=== PATIENT | male | born 1990 ===

== ENCOUNTER 2018-09-03 09:23 | Inpatient (IN) | payer OTHER ==
--- NOTE | 2018-09-03 09:51 | C.PDOC ---
History Of Present Illness 27 y/o male, otherwise well, presents to the ED requesting detox form heroin. Patient admits to sniffing heroin, last use was yesterday afternoon. No IVDA. Patient is now complaining of general body aches and feeling nauseous. Denies any tremors, palpitations, headache, fevers, chills, cough, or URI symptoms. Time Seen by Provider: 09/03/18 09:43 Chief Complaint (Nursing): Substance Abuse History Per: Patient History/Exam Limitations: no limitations Onset/Duration Of Symptoms: Days Current Symptoms Are (Timing): Still Present Modifying Factor(s): Other (Heroin) Associated Symptoms: denies: Suicidal Thoughts, Suicidal Plan Involuntary Hold By: None Past Medical History Reviewed: Historical Data, Nursing Documentation, Vital Signs Other Surgeries: Left knee surgery, Right ankle surgery Family History: States: No Known Family Hx Review Of Systems Except As Marked, All Systems Reviewed And Found Negative. Constitutional: Negative for: Fever, Chills Cardiovascular: Negative for: Palpitations Respiratory: Negative for: Cough, Shortness of Breath Gastrointestinal: Positive for: Nausea. Negative for: Abdominal Pain Musculoskeletal: Positive for: Other (Generalized body aches). Negative for: Back Pain Neurological: Negative for: Weakness, Dizziness Physical Exam - Physical Exam Appears: Non-toxic, No Acute Distress Skin: Warm, Dry, No Rash Head: Atraumatic, Normacephalic Eye(s): bilateral: Normal Inspection, PERRL, EOMI Oral Mucosa: Moist Neck: Normal ROM Chest: Symmetrical Cardiovascular: Rhythm Regular, No Murmur Respiratory: Normal Breath Sounds, No Accessory Muscle Use, No Wheezing Gastrointestinal/Abdominal: Soft, No Tenderness, No Distention Extremity: Bilateral: Atraumatic, Normal Color And Temperature, Other (No tremors noted) Neurological/Psych: Oriented x3, Normal Speech ED Course And Treatment - Laboratory Results Result Diagrams: 09/03/18 10:37 09/03/18 10:37 Medical Decision Making Medical Decision Making: Impression: Detox, heroin use Plan: - Labs ordered - Pending crisis evaluation Disposition Counseled Patient/Family Regarding: Diagnosis - Disposition Disposition: HOSPITALIZED Disposition Time: 11:57 Condition: GUARDED Forms: [facility] (Georgian) - POA Present On Arrival: None - Clinical Impression Clinical Impression: Drug abuse - Scribe Statement The provider has reviewed the documentation as recorded by the Scribe Flora Timi Provider Attestation: All medical record entries made by the Meli were at my direction and personally dictated by me. I have reviewed the chart and agree that the record accurately reflects my personal performance of the history, physical exam, medical decision making, and the department course for this patient. I have also personally directed, reviewed, and agree with the discharge instructions and disposition. Decision To Admit - Pt Status Changed To: Hospital Disposition Of: Inpatient - Admit Certification Admit to Inpatient:: After my assessment, the patient will require hospitalization for at least two midnights. This is because of the severity of symptoms shown, intensity of services needed, and/or the medical risk in this patient being treated as an outpatient. - InPatient: Physician Admission Certification: I certify that this patient requires 2 or more midnights of care for the following reason:: opioid detox - . Bed Request Type: Detox Admitting Physician: Mikala Ravi Patient Diagnosis: Drug abuse
[2018-09-03 10:42] LABS: BASO % 0.3 % (0.0-2.0); EOS # 0.3 K/uL (0.0-0.7); EOS % 3.2 % (0.0-4.0); HEMOGLOBIN 15.5 g/dL (12.0-18.0); LYMPH # 0.9 K/uL (1.0-4.3); LYMPH % 9.1 % (20.0-40.0); MEAN CELL VOLUME 94.7 fL (80.0-94.0); MEAN CORPUSCULAR HEMOGLOBIN 31.9 pg (27.0-31.0); MEAN CORPUSCULAR HGB CONC 33.7 g/dL (33.0-37.0); MEAN PLATELET VOLUME 7.9 fL (7.2-11.7); MONO # 0.9 K/uL (0.0-0.8); MONO % 9.1 % (0.0-10.0); NEUT # 8.1 K/uL (1.8-7.0); NEUT % 78.3 % (50.0-75.0); PLATELET COUNT 233 K/uL (130-400); RBC 4.85 Mil/uL (4.40-5.90); RED CELL DISTRIBUTION WIDTH 13.3 % (11.5-14.5); WHITE BLOOD COUNT 10.4 K/uL (4.8-10.8)
[2018-09-03 10:46] LABS: URINE AMORPHOUS SEDIMENT RARE /ul (<OCC); URINE BILIRUBIN NEGATIVE (NEGATIVE); URINE BLOOD NEGATIVE (NEGATIVE); URINE CLARITY Turbid (Clear); URINE COLOR Amber (YELLOW); URINE GLUCOSE (UA) NORMAL (Normal); URINE LEUKOCYTE ESTERASE NEG Leu/uL (Negative); URINE PROTEIN NEGATIVE (NEGATIVE); URINE UROBILINOGEN NORMAL mg/dL (0.2-1.0)
[2018-09-03 10:56] LABS: ALBUMIN 4.5 g/dL (3.5-5.0); BLOOD UREA NITROGEN 11 mg/dL (9-20); CALCIUM 9.1 mg/dl (8.6-10.4); GFR NON-AFRICAN AMERICAN > 60
[2018-09-03 10:57] LABS: ALB/GLOB RATIO 1.6 (1.0-2.1); ALT/SGPT 35 U/L (21-72); AST/SGOT 38 U/L (17-59)
[2018-09-03 11:07] LABS: BARBITURATES, UR NEGATIVE (NEGATIVE); BENZODIAZEPINES, UR NEGATIVE (NEGATIVE); PHENCYCLIDINE, UR NEGATIVE (NEGATIVE)
[2018-09-03 11:08] LABS: EOSINOPHIL 5 % (0-4); LYMPHOCYTE 8 % (20-40); MONOCYTE 9 % (0-10); NEUTROPHIL 78 % (50-75); PLATELET ESTIMATE NORMAL (NORMAL); TOTAL CELLS COUNTED 100
[2018-09-03 11:24] LABS: OPIATES, UR POSITIVE (NEGATIVE)
[2018-09-03] MEDS ORDERED: Aluminum Hydroxide/Magnesium Hydroxide Susp (30 mL) PO PRN (16:49)
[2018-09-03] MEDS ORDERED: Buprenorphine Hydrochloride 2 mg SL ONE ×2 (16:59→18:15)
--- NOTE | 2018-09-03 17:10 | PCM.BM ---
<JacklynRisa - Last Filed: 09/03/18 17:08> Treatment Plan Problems - Problems identified on initial assessmt Defensive Coping Date Initiated: 09/03/18 Time Initiated: 17:09 Assessment reference: NA Status: Active Chronic Low Self esteem Date Initiated: 09/03/18 Time Initiated: 17:09 Assessment reference: NA Status: Active Low Motivation to Change Date Initiated: 09/03/18 Time Initiated: 17:09 Assessment reference: NA Status: Active Treatment assets and liabiliti Patient Assests: cooperative, ADL independent, negotiates basic needs, cognitively intact Patient Liabilities: substance abuse - Milieu Protocol Maintain good personal hygiene: daily Encourage regular showers, daily Remind patient to perform daily oral care, daily Assist patient to perform ADL's Conduct patient checks and document Observation sheet: Q15 minutes Maintain personal safety: every shift Educate patient to report safety concerns to staff, every shift Monitor environment for contraband/sharps Medication safety: Monitor for expected outcome, potential side effects: every shift, Assess barriers to learning: every shift, Assess readiness for medication education: every shift <Christina Barbosa - Last Filed: 09/06/18 14:27> Family Contact Family involvement: Family/SO is involved Family contact name: mom Family contacted how many times per week?: 2 - Goals for Treatment Patient goals for treatment: Complete detox and apply for long-term rehab. Discharge/Continuing Care - Education Needs Education Needs: Family Diagnosis/Disease Process, Family Community resources, Patient Medication, Patient Diagnosis/Disease Process, Patient Coping Skills, Patient Anger Management skills, Patient Placement options, Patient Community resources - Discharge Discharge Criteria: No longer exhibiting s/s of withdrawal, Reduction of target symptoms Discharge to:: Substance Abuse Rehab - Treatment Team Participation Patient/Family/SO Statement: 09/06/18 14:28 "I wanna go to [facility] long-term..." Discussed with Family/SO: No Was Patient/Family/SO present at Treatment Team Meeting: Yes <Mikala Ravi - Last Filed: 09/09/18 18:09> - Diagnosis (1) Opioid use disorder, severe, dependence Status: Acute Interventions: 09/03/18 18:09 * Assess 7x/week regarding severity of withdrawal * Educate regarding risks, benefits, side effects and alternatives of medication s * Use Motivational Interviewing for abstinence * Use CBT for relapse prevention * Medication management for withdrawal symptoms * Encourage medication assisted treatment *
[2018-09-04] MEDS: Multiple Vitamins Tab PO SCH (09:41)
[2018-09-04] MEDS: Buprenorphine Hydrochloride 2 mg SL SCH (09:42)
--- NOTE | 2018-09-04 11:24 | PCM.PSYCH ---
Initial Psychiatric Evaluation - Initial Psychiatric Evaluation Type of Admission: Voluntary Legal Status: Capacity Chief Complaint (in patient's own words): "I need detox" History of Present Illness and Precipitating Events: A 27 year old male who is single, unemployed, currently living with his mother, presents to the hospital for heroin detox. Patient reports that he needs to stop using before it gets really out of hand. Patient has no history of previous detox. Patient states he is easily influenced by his friends, who convinced him to start using heroin. His sister convinced him to come to the hospital for treatment. Patient sniffs 5 bags per day for the past few weeks, with his last use being yesterday. Patient currently complains of withdrawal symptoms including lethargy, body aches, stomach cramps, bouts of sweating, and restlessness. He also describes tremors, anxiety and some sweating from alcohol. Patient also sniffs cocaine occasionally, drinks 1 pint of alcohol daily, and pack of cigarettes per day for the last 2 months. Patient denies marijuana, benzodiazepine, and other illicit substance use. Patient has never been to rehab. Patient denies suicidal or homicidal ideations, visual or auditory hallucinations, or paranoia at this time. Patient also has a right ankle injury prompting a visit to his PMD for, but has not gotten a follow-up x-ray. Psych Hx: depression, anxiety, ADHD, but the patient has no history of inpatient psychiatric hospitalizations in the past. Fam Psych Hx: mother had depression, brother is schizophrenic PMHx: denies Meds: denies Allergies: shellfish, trazodone, aripiprazole Current Medications: Active Medications Generic Name Dose Route Start Last Admin Trade Name Freq PRN Reason Stop Dose Admin Al Hydrox/Mg Hydrox/Simethicone 30 ml 09/03/18 16:49 Maalox 30 Ml PO TID PRN Indigestion / Heartburn Buprenorphine HCl 8 mg 09/04/18 10:00 09/04/18 09:42 Subutex SL 09/09/18 09:59 8 mg DAILY RONN Administration Taper Chlordiazepoxide 25 mg 09/03/18 18:00 09/04/18 05:01 Librium PO 09/08/18 17:59 25 mg Q6H RONN Administration Taper Chlordiazepoxide 25 mg 09/03/18 16:57 Librium PO Q4H PRN Alcohol Withdrawal Clonidine HCl 0.1 mg 09/03/18 16:49 Catapres PO Q4 PRN COWS Score More or Equal to 5 Folic Acid 1 mg 09/04/18 10:00 09/04/18 09:41 Folic Acid PO 1 mg DAILY RONN Administration Hydroxyzine HCl 50 mg 09/03/18 16:52 09/03/18 21:32 Atarax PO 50 mg Q6H PRN Administration Anxiety Ibuprofen 600 mg 09/03/18 16:52 Motrin Tab PO Q6H PRN Pain, moderate (4-7) Influenza Virus Vaccine 60 mcg 09/05/18 10:00 Flucelvax Quad 5317-0003 Syr IM 09/05/18 10:01 .ONCE ONE Loperamide HCl 2 mg 09/03/18 16:49 Imodium PO Q8 PRN Diarrhea Mirtazapine 15 mg 09/03/18 22:00 09/03/18 21:32 Remeron PO 15 mg HS RONN Administration Multivitamins 1 tab 09/04/18 10:00 09/04/18 09:41 Hexavitamin PO 1 tab DAILY RONN Administration Ondansetron HCl 4 mg 09/03/18 16:49 Zofran Tab PO Q8 PRN Nausea/Vomiting Pneumococcal Polyvalent Vaccine 0.5 ml 09/05/18 10:00 Pneumovax 23 Vaccine IM 09/05/18 10:01 .ONCE ONE Thiamine HCl 100 mg 09/04/18 10:00 09/04/18 09:41 Vitamin B1 Tab PO 100 mg DAILY RONN Administration Past Psychiatric History - Past Psychiatric History Pertinent Medical Hx (Current Medical&Sleep Prob, Allergies): Allergies Allergy/AdvReac Type Severity Reaction Status Date / Time shellfish derived Allergy Intermediate ANGIOEDEMA Verified 09/03/18 09:44 aripiprazole [From Abilify] AdvReac possible Verified 09/03/18 10:24 seizures trazodone AdvReac possible Verified 09/03/18 10:24 seizures No Known Home Med 09/03/18 Review of Systems - Psychiatric Psychiatric: Abnormal Sleep Pattern, Anhedonia, Anxiety, Change in Appetite, De pression, Difficulty Concentrating, Irritability. absent: Hallucinations, Homicidal Ideation, Paranoia, Suicidal Ideation Mental Status Examination - Personal Presentation Personal Presentation: Looks stated age - Affect Affect: Constricted - Motor Activity Motor Activity: Calm - Reliability in Providing Information Reliability in Providing Information: Good - Speech Speech: Organized - Mood Mood: Depressed, Anxious - Formal Thought Process Formal Thought Process: No Impairment - Cognitive Functions Orientation: Person, Place, Situation, Time Sensorium: Alert Attention/Concentration: Easily distracted Abstract Thinking: [place] Estimate of Intelligence: Average Judgement: Intact, as evidence by: Insight regarding need for hospitalization Memory: Recent intact, as evidence by: Ability to recall events of the day, Remote intact, as evidenced by: Abilit to recall sig. life events - Risk Risk: Withdrawal, Diminished functioning - Strength & Assets Inventory Strength & Assets Inventory: Cooperative - Limitations Limitations: Other DSM 5 DX - DSM 5 DSM 5 Diagnosis: Opioid withdrawal Opioid use d/o - severe Alcohol withdrawal Alcohol use d/o - severe Cocaine use d/o - severe Depressive d/o - unspecified - Recommended/Plan of Treatment Treatment Recommendations and Plan of Treatment: Taper with Subutex Taper with librium Gabapentin for augmentation if needed As needed medications Clonidine, Atarax, and Motrin As needed Librium for alcohol withdrawal Remeron for depression All risks, benefits and alternatives of the meds discussed, and the pt agreed and understood. Attend groups and activities Supportive therapy and psychoeducation [place] for abstinence CBT for relapse prevention Encourage MAT Refer to rehab or IOP, and self-help groups; patient requested [facility] inpatient rehab treatment Teach healthy lifestyle methods, i.e. diet, exercise, meditation Smoking cessation with [place] Nicotine patch if needed 33 min Projected ELOS: 4-5 days Prognosis: good w treatment - Smoking Cessation Smoking Cessation Initiated: Yes
[2018-09-04] MEDS ORDERED: Potassium & Sodium Phosphate PO ONE (11:30)
--- NOTE | 2018-09-04 13:16 | RAD ---
Date of service: 09/04/2018 PROCEDURE: Right Ankle Radiographs. HISTORY: sprained ankle COMPARISON: None available. FINDINGS: BONES: No acute fracture suspect. Prominent posterior talar process and/or partially fused os trigonum suspect JOINTS: Normal. No osteoarthritis. Ankle mortise maintained. Talar dome intact SOFT TISSUES: Soft tissue swelling-an anterior posterior ankle joint effusion is suspect. OTHER FINDINGS: None. IMPRESSION: No fracture or dislocation is suggested. Soft tissue swelling in the area of interest is noted.
[2018-09-05] MEDS ORDERED: Influenza Vaccine 60 mcg/0.5 mL SYR (4YR UP) IM ONE (10:00)
[2018-09-05] MEDS ORDERED: Pneumococcal 23-Valent Vaccine IM ONE (10:00)
[2018-09-05] MEDS: Multiple Vitamins Tab PO SCH (10:14)
[2018-09-05] MEDS: Buprenorphine Hydrochloride 2 mg SL SCH (10:14)
--- NOTE | 2018-09-05 13:52 | PCM.PYCHPN ---
Psychiatric Progress Note - Psychiatric Progress Note Patient seen today, length of contact: 16 min Patient Chief Complaint: "I'm better" Problems Identified/Issues Discussed: The pt is seen, chart reviewed, case is discussed with staff. Support and psychoeducation given, CBT and ID used briefly The pt is improving slowly but needs more time due to severity of symptoms and relapse risk. No SEs from medications, risks discussed. After care discussed Medication Change: Yes (detox changes daily) Medical Record Reviewed: Yes Mental Status Examination - Cognitive Function Orientation: Person, Place, Situation, Time Memory: Intact Attention: WNL Concentration: WNL Association: WN Fund of Knowledge: WN - Mood Mood: Depressed, Anxious - Affect Affect: Constricted - Speech Speech: Appropriate - Formal Thought Process Formal Thought Process: No Impairment - Suicidal Ideation Suicidal Ideation: No - Homicidal Ideation Homicidal Ideation: No Goal/Treatment Plan - Goal/Treatment Plan Need for Continued Stay: Discharge may exacerbated symptoms, Severe functional impairment Progress Toward Problem(s) and Goals/Treatment Plan: Taper with Subutex Taper with librium Gabapentin for augmentation if needed As needed medications Clonidine, Atarax, and Motrin As needed Librium for alcohol withdrawal Remeron for depression All risks, benefits and alternatives of the meds discussed, and the pt agreed and understood. Attend groups and activities Supportive therapy and psychoeducation [place] for abstinence CBT for relapse prevention Encourage MAT Refer to rehab or IOP, and self-help groups; patient requested [facility] inpatient rehab treatment Teach healthy lifestyle methods, i.e. diet, exercise, meditation Smoking cessation with [place] Nicotine patch if needed Estimated Date of D/C: 09/07/18
[2018-09-05] MEDS ORDERED: Bacitracin Ointment 30 GM TUBE TOP PRN (21:30)
[2018-09-06] MEDS: Multiple Vitamins Tab PO SCH (09:21)
[2018-09-06] MEDS: Buprenorphine Hydrochloride 2 mg SL SCH (09:22)
[2018-09-06] MEDS ORDERED: Bacitracin 500 Units/gm Oint Foilpak UD TOP ONE (18:02)
[2018-09-07] MEDS: Buprenorphine Hydrochloride 2 mg SL SCH (09:02)
[2018-09-07] MEDS: Multiple Vitamins Tab PO SCH (09:02)
--- NOTE | 2018-09-07 09:25 | PCM.PYCHDC ---
Mental Status Examination - Mental Status Examination Orientation: Person Discharge Summary - Discharge Note Consultations:: List each consultation separately and include: 1. Reason for request. 2. Findings. 3. Follow-up Summary of Hospital Course include:: 1. Description of specific treatment plan utilized for patients during their course of treatmen. 2. Summarize the time- course for resolution of acute symptoms and/or regressed behaviors. 3. Describe issues identified and worked on during hospitalization. 4. Describe medication utilized. 5. Describe medical problems identified and treated. 6. Reassessment of suicide risk Summary of Hospital Course: A 27 year old male who is single, unemployed, currently living with his mother, presents to the hospital for heroin detox. Patient reports that he needs to stop using before it gets really out of hand. Patient has no history of previous detox. Patient states he is easily influenced by his friends, who convinced him to start using heroin. His sister convinced him to come to the hospital for treatment. Patient sniffs 5 bags per day for the past few weeks, with his last use being yesterday. Patient currently complains of withdrawal symptoms including lethargy, body aches, stomach cramps, bouts of sweating, and restlessness. He also describes tremors, anxiety and some sweating from alcohol. Patient also sniffs cocaine occasionally, drinks 1 pint of alcohol daily, and pack of cigarettes per day for the last 2 months. Patient denies marijuana, benzodiazepine, and other illicit substance use. Patient has never been to rehab. Patient denies suicidal or homicidal ideations, visual or auditory hallucinations, or paranoia at this time. Patient also has a right ankle injury prompting a visit to his PMD for, but has not gotten a follow-up x-ray. Psych Hx: depression, anxiety, ADHD, but the patient has no history of inpatient psychiatric hospitalizations in the past. Fam Psych Hx: mother had depression, brother is schizophrenic PMHx: denies Meds: denies Allergies: shellfish, trazodone, aripiprazole He was unmotivated. He maygo to [employer]. - Final Diagnosis (DSM 5) Condition upon Discharge: GUARDED Disposition: HOME/ ROUTINE Follow-up Treatment Plan: Taper with Subutex Taper with librium Gabapentin for augmentation if needed As needed medications Clonidine, Atarax, and Motrin As needed Librium for alcohol withdrawal Remeron for depression All risks, benefits and alternatives of the meds discussed, and the pt agreed and understood. Attend groups and activities Supportive therapy and psychoeducation [place] for abstinence CBT for relapse prevention Encourage MAT Refer to rehab or IOP, and self-help groups; patient requested [facility] re[facility] treatment Teach healthy lifestyle methods, i.e. diet, exercise, meditation Smoking cessation with [place] Nicotine patch if needed 33 min Prescriptions/Medication Reconciliation: Mirtazapine [Remeron] 15 mg PO HS #30 tab
[2018-09-07 09:58] VITALS: BP 121/72; PULSE 91; RESP 20; TEMP 97.7; O2SAT 99
--- NOTE | 2018-09-09 18:11 | PCM.PYCHPN ---
Psychiatric Progress Note - Psychiatric Progress Note Patient seen today, length of contact: 16 min Patient Chief Complaint: "I'm tired" Problems Identified/Issues Discussed: The pt is seen, chart reviewed, case is discussed with staff. The pt is compliant with medications and reports no side-effects. Symptoms are improving but needs more time to stabilize and to avoid relapse. Pt attends groups and activities. Support given, psycho-education provided. After care discussed. Medication Change: Yes (detox changes daily) Medical Record Reviewed: Yes Mental Status Examination - Cognitive Function Orientation: Person, Place, Situation, Time Memory: Intact Attention: WNL Concentration: WNL Association: WNL Fund of Knowledge: WNL - Mood Mood: Depressed, Anxious - Affect Affect: Constricted - Speech Speech: Appropriate - Formal Thought Process Formal Thought Process: No Impairment - Suicidal Ideation Suicidal Ideation: No - Homicidal Ideation Homicidal Ideation: No Goal/Treatment Plan - Goal/Treatment Plan Need for Continued Stay: Discharge may exacerbated symptoms, Severe functional impairment Progress Toward Problem(s) and Goals/Treatment Plan: Taper with Subutex Taper with librium Gabapentin for augmentation if needed As needed medications Clonidine, Atarax, and Motrin As needed Librium for alcohol withdrawal Remeron for depression All risks, benefits and alternatives of the meds discussed, and the pt agreed and understood. Attend groups and activities Supportive therapy and psychoeducation [place] for abstinence CBT for relapse prevention Encourage MAT Refer to rehab or IOP, and self-help groups; patient requested [facility] treatment Teach healthy lifestyle methods, i.e. diet, exercise, meditation Smoking cessation with [place] Nicotine patch if needed Estimated Date of D/C: 09/07/18
== END 2018-09-07 09:40 | disposition home or self-care (01) | DRG 745 ==
LOC: C.ER 09:23 → C.7D 16:11
PROVIDERS: ADMIT Psychiatry & Neurology Psychiatry; ATTEND Psychiatry & Neurology Psychiatry
PROC: GZHZZZZ Group Psychotherapy (ICD-10-PCS; principal; 2018-09-03)
PROC: GZ56ZZZ Individual Psychotherapy, Supportive (ICD-10-PCS; 2018-09-03)
DX: F11.23 Opioid dependence with withdrawal (principal); F14.90 Cocaine use, unspecified, uncomplicated; F32.9 Major depressive disorder, single episode, unspecified; F41.9 Anxiety disorder, unspecified; F90.9 Attention-deficit hyperactivity disorder, unspecified type; F10.239 Alcohol dependence with withdrawal, unspecified